=== PATIENT | female | born 1975 | race Caucasian/White ===

== ENCOUNTER 2016-10-02 11:12 | Emergency (ER) | payer MEDICAID ==
[~2016-10-02] VITALS: Ht 167.6 cm; Wt 70.0 kg
[2016-10-02 11:24] VITALS: Ht 167.6 cm; Wt 70.0 kg
[2016-10-02] MEDS ORDERED: FAMOTIDINE 20 MG INJ IV STA (12:14)
[2016-10-02] MEDS ORDERED: LIDOCAINE/MYLANTA 40 ML BTL PO STA (12:14)
[2016-10-02] MEDS ORDERED: SOD CHLORIDE 0.9% 1,000 ML IV STA (12:14)
[2016-10-02] MEDS ORDERED: morphine 4 MG/ML VIAL IV STA (12:14)
[2016-10-02] MEDS ORDERED: ONDANSETRON 4 MG INJ IV STA (12:14)
--- NOTE | 2016-10-02 12:31 | ERD ---
ER Documentation Chief Complaint Date/Time DATE: 10/02/16 TIME: 12:30 Chief Complaint Complains of epigastric/chest pain x 3 days HPI Patient is a 40-year-old female here with daughter who presents to the ED with epigastric pain 1 week. She states that the pain has gotten worse over the last week. She states that she has never had this pain in the past. She also complains of body aches. She states that she had a few episodes of diarrhea yesterday and today, nonbloody nonblack or tarry. Denies vomiting but states that she is nauseous. States that she is taking Advil for her symptoms which is helped minimally. Denies change in foods or recent travel. Denies seizures or rashes. Denies dysuria urgency. Denies fever or chills. Denies headache or dizziness, neck pain or neck stiffness. Denies chest pain or cough or shortness of breath. Denies leg pain or leg swelling. Denies heart disease. Denies family history of heart disease or MIs. ROS All systems reviewed and are negative except as per history of present illness. Medications Home Meds Active Scripts Acetaminophen* (Tylophen*) 500 Mg Capsule, 1 CAP PO Q6H Y for PAIN AND OR ELEVATED TEMP, #20 CAP Prov:BEATRIZ ENRIQUEZ PA-C 10/02/16 Ondansetron (Ondansetron Odt) 4 Mg Tab.rapdis, 4 MG PO Q6H Y for NAUSEA AND/OR VOMITING, #10 TAB Prov:BEATRIZ ENRIQUEZ PA-C 10/02/16 Famotidine* (Pepcid*) 20 Mg Tablet, 20 MG PO BID for 10 Days, TAB Prov:BEATRIZ ENRIQUEZ PA-C 10/02/16 Allergies Allergies: Coded Allergies: No Known Allergy (Verified , 05/24/14) PMhx/Soc History of Surgery: No Anesthesia Reaction: No Hx Neurological Disorder: No Hx Respiratory Disorders: No Hx Cardiac Disorders: No Hx Psychiatric Problems: No Hx Miscellaneous Medical Probl: No Hx Alcohol Use: No Hx Substance Use: No Hx Tobacco Use: No FmHx Family History: No coronary disease, No diabetes, No other Physical Exam Vitals Vital Signs Date Time Temp Pulse Resp B/P Pulse Ox O2 Delivery O2 Flow Rate FiO2 10/02/16 11:24 98.6 98 20 128/71 98 Physical Exam GENERAL: Well-developed, well-nourished female. Appears in no acute distress. HEAD: Normocephalic, atraumatic. EYES: Pupils are equally reactive bilaterally. EOMs grossly intact. No conjunctival erythema. ENT: Moist mucous membranes. No uvula deviation. No kissing tonsils. No exudates. NECK: Supple. No lymphadenopathy or thyromegaly. No meningismus. negative kernig. negative brudinski. LUNG: Clear to auscultation bilaterally. No rhonchi, wheezing, rales or coarse breath sounds. HEART: Regular rate and rhythm. No murmurs, rubs or gallops. ABDOMEN: No scars, ecchymosis or rashes noted. and nondistended. Positive bowel sounds in all four quadrants. No rebound tenderness, no guarding. (-) McBurneys point tenderness. No CVA tenderness. Tenderness in the epigastric and right upper quadrant region. BACK: No midline tenderness. Extremities: Equal pulses bilaterally. No peripheral clubbing, cyanosis or edema. No unilateral leg swelling. NEUROLOGIC: Alert and oriented. Moving all four extremities. 5/5 strength in all extremities. Normal speech. Steady gait. SKIN: Normal color. Warm and dry. No rashes or lesions. Capillary refill < 2 seconds Result Diagram: 10/02/16 1230 10/02/16 1230 Results 24 hrs Laboratory Tests Test 10/02/16 12:30 10/02/16 12:42 White Blood Count 5.610^3/ul Red Blood Count 4.2810^6/ul Hemoglobin 13.7g/dl Hematocrit 38.6% Mean Corpuscular Volume 90.2fl Mean Corpuscular Hemoglobin 32.0pg Mean Corpuscular Hemoglobin Concent 35.5g/dl Red Cell Distribution Width 11.9% Platelet Count 90355^3/UL Mean Platelet Volume 8.0fl Neutrophils % 82.7% Lymphocytes % 9.6% Monocytes % 7.0% Eosinophils % 0.0% Basophils % 0.2% Nucleated Red Blood Cells % 0.0/100WBC Neutrophils # 4.610^3/ul Lymphocytes # 0.510^3/ul Monocytes # 0.410^3/ul Eosinophils # 0.010^3/ul Basophils # 0.010^3/ul Nucleated Red Blood Cells # 0.010^3/ul Sodium Level 139mmol/L Potassium Level 3.6mmol/L Chloride Level 107mmol/L Carbon Dioxide Level 19mmol/L Anion Gap 17 Blood Urea Nitrogen 12mg/dl Creatinine 0.58mg/dl Glucose Level 105mg/dl Calcium Level 9.4mg/dl Total Bilirubin 0.7mg/dl Direct Bilirubin 0.00mg/dl Indirect Bilirubin 0.7mg/dl Aspartate Amino Transf (AST/SGOT) 24IU/L Alanine Aminotransferase (ALT/SGPT) 56IU/L Alkaline Phosphatase 87IU/L Total Protein 8.4g/dl Albumin 5.0g/dl Globulin 3.40g/dl Albumin/Globulin Ratio 1.47 Lipase 51U/L Urine Color YELLOW Urine Clarity SLIGHTLY CLOUDY Urine pH 5.0 Urine Specific Hugo 1.016 Urine Ketones NEGATIVEmg/dL Urine Nitrite NEGATIVEmg/dL Urine Bilirubin NEGATIVEmg/dL Urine Urobilinogen NEGATIVEmg/dL Urine Leukocyte Esterase TRACELeu/ul Urine Microscopic RBC 11/HPF Urine Microscopic WBC 4/HPF Urine Squamous Epithelial Cells FEW/HPF Urine Bacteria FEW/HPF Urine Hemoglobin 3+mg/dL Urine Glucose NEGATIVEmg/dL Urine Total Protein NEGATIVEmg/dl Current Medications Medications (Trade) Dose Ordered Sig/Hermilo Route PRN Reason Start Time Stop Time Status Last Admin Dose Admin Sodium Chloride (NS) 1,000 ml @ 1,000 mls/hr Q1H STAT IV 10/02/16 12:14 10/02/16 13:13 DC 10/02/16 13:12 Morphine Sulfate (morphine) 4 mg ONCE STAT IV 10/02/16 12:14 10/02/16 12:17 DC 10/02/16 13:11 Ondansetron HCl (Zofran Inj) 4 mg ONCE STAT IV 10/02/16 12:14 10/02/16 12:17 DC 10/02/16 13:11 Famotidine (Pepcid Iv) 20 mg ONCE STAT IV 10/02/16 12:14 10/02/16 12:17 DC 10/02/16 13:11 Miscellaneous Medication (Gi Cocktail (2)) 40 ml ONCE STAT PO 10/02/16 12:14 10/02/16 12:17 DC 10/02/16 13:24 Procedures/MDM ER COURSE: I kept the patient and/or family informed of laboratory and diagnostic imaging results throughout the emergency room course. EKG, MONITORS, & DIAGNOSTIC IMAGING: EKG performed, read by Dr. Ingram 94bpm, normal sinus rhythm, normal axis, no acute ST segment changes, no T wave inversion [place] [id number] Rad[facility] Main Line: [phone] DIAGNOSTIC IMAGING REPORT Patient: NILTON KHAN : 1975 Age: 40 Sex: F MR #: [id number] DOS: 10/02/16 1216 Ordering MD: BEATRIZ ENRIQUEZ PA-C Location: [facility] Room/Bed: PROCEDURE: XR Chest. CLINICAL INDICATION: Chest pain and upper abdominal pain. TECHNIQUE: Single frontal view. COMPARISON: None. FINDINGS: The lungs are clear. The heart size is normal. There is no pleural effusion. There is no pneumothorax. IMPRESSION: 1. Normal chest radiograph. RPTAT: QQ .Ac Naqvi MD, MD Date Time Electronically viewed and signed by .Ac Naqvi MD, MD on 10/02/2016 14:43 .R/ CC: BEATRIZ ENRIQUEZ PA-C [place] [id number] [facility] Main Line: [phone] DIAGNOSTIC IMAGING REPORT Patient: NILTON KHAN : 1975 Age: 40 Sex: F MR #: [id number] DOS: 10/02/16 1214 Ordering MD: BEATRIZ ENRIQUEZ PA-C Location: [facility] Room/Bed: PROCEDURE: US Abdomen . CLINICAL INDICATION: epigastric, ruq pain TECHNIQUE: Multiple real-time images were acquired of the patient's abdomen and retroperitoneum utilizing a high resolution transducer. COMPARISON: None FINDINGS: The liver measures 15.3 cm and demonstrates normal echogenicity. There is no intrahepatic biliary ductal dilatation. The extrahepatic common bile duct measures 5 mm. The main portal vein is patent with proper directional flow. The gallbladder is without stones, wall thickening, or pericholecystic fluid. The visualized pancreas is unremarkable. The right kidney measures 9.5 cm. There are no renal calculi or hydronephrosis. The visualized abdominal aorta and IVC are grossly unremarkable. IMPRESSION: Unremarkable abdominal ultrasound. No cholelithiasis or acute cholecystitis. Normal CBD. RPTAT: EE Physician Kanu Date Time Electronically viewed and signed by Physician Kanu on 10/02/2016 13:18 RA/ CC: BEATRIZ ENRIQUEZ PA-C PROCEDURES: Patient was given morphine and Zofran and GI cocktail and Pepcid. Tolerated well and stated improvement in her symptoms. LAB INTERPRETATION: CBC showed no evidence of systemic infection or severe anemia. CMP showed no evidence of electrolyte abnormalities, severe acidosis, alkalosis, renal failure , or liver disease. Lipase showed no evidence of acute pancreatitis. UA showed no evidence of leukocytes, nitrites or hematuria. Urine test was negative. MEDICAL DECISION MAKING: This is a 40-year-old female with no past medical history who presents with epigastric pain 1 week and diarrhea. Vital signs were reviewed. Patient is afebrile. Patient is not hypoxic. Patient is not toxic or ill-appearing. Patient has abdominal pain likely viral in etiology versus GERD. I reexamined patient after administration of medication and she stated improvement in symptoms and was ready to be discharged. Her ultrasound is read by radiologist was unremarkable. Her blood work was within normal limits. Her EKG and chest x -ray were within normal limits. Low suspicion for ACS, AAA, perforated ulcer, bowel obstruction, cholecystitis, choledocholithiasis, cholangitis, pancreatitis , hepatic abscess, appendicitis, diverticulitis, gastroenteritis, hepatitis, peptic ulcer disease, HELLP syndrome. Low suspicion for ACS, PE, AAA, dissection, DVT. Risk versus benefits of the CT scan were discussed with patient. No CT scan was ordered. I explained to patient to have close follow- up and to return in 8-12 hours for reevaluation. DISCHARGE: At this time, patient is stable for discharge and outpatient management with no new complaints during the ER course. Patient was sent home with Tylenol, Zofran and Pepcid and to follow-up with primary care provider or return in 8-12 hours for reevaluation. Patient will be discharged home with instructions to recheck for new or worsening symptoms such as fever, nausea, weakness, LOC and to follow up with primary care in the next 1-2 days. Patient was advised to return to the ER for any new or worsening symptoms. Plan was discussed and patient and/ or family understands and agrees. Home instructions were given. Departure Diagnosis: Primary Impression: Epigastric pain Condition: Stable BEATRIZ ENRIQUEZ PA-C Oct 02, 2016 12:31
[2016-10-02 12:41] LABS: ADD SCAN DIFF NO
[2016-10-02 12:43] LABS: ABNORMAL IP MESSAGE 1; BASOPHILS % 0.2 % (0.0-2.0); HEMATOCRIT 38.6 % (37.0-47.0); HEMOGLOBIN 13.7 g/dl (12.0-16.0); LYMPHOCYTES # 0.5 10^3/ul (0.8-2.9); LYMPHOCYTES % 9.6 % (15.0-51.0); MEAN CORPUSCULAR HGB CONC 35.5 g/dl (32.0-37.0); MEAN CORPUSCULAR VOLUME 90.2 fl (82.0-101.0); MONOCYTE # 0.4 10^3/ul (0.3-0.9); NEUTROPHIL # 4.6 10^3/ul (1.6-7.5); NEUTROPHILS % 82.7 % (39.0-77.0); PLATELET COUNT 165 10^3/UL (140-415); RED BLOOD COUNT 4.28 10^6/ul (4.20-5.40); RED CELL DISTRIBUTION WIDTH 11.9 % (11.5-14.5); WHITE BLOOD COUNT 5.6 10^3/ul (4.8-10.8)
[2016-10-02 13:03] LABS: ALBUMIN/GLOBULIN RATIO 1.47; BILIRUBIN,INDIRECT 0.7 mg/dl (0-1.1); BILIRUBIN,TOTAL 0.7 mg/dl (0.2-1.3); CALCIUM 9.4 mg/dl (8.4-10.2); CREATININE 0.58 mg/dl (0.44-1.00); POTASSIUM 3.6 mmol/L (3.5-5.1); TOTAL PROTEIN 8.4 g/dl (6.1-8.1)
[2016-10-02 13:04] LABS: ADD UMIC YES; UR ASCORBIC ACID NEGATIVE (NEGATIVE); UR BACTERIA FEW /HPF (NONE SEEN); UR BILIRUBIN (Dip) NEGATIVE (NEGATIVE); UR BLOOD (Dip) 3+ mg/dL (NEGATIVE); UR CLARITY SLIGHTLY CLOUDY (CLEAR); UR COLOR YELLOW (YELLOW); UR GLUCOSE (Dip) NEGATIVE (NEGATIVE); UR KETONES (Dip) NEGATIVE (NEGATIVE); UR LEUKOCYTE ESTERASE (Dip) TRACE Leu/ul (NEGATIVE); UR NITRITE (Dip) NEGATIVE (NEGATIVE); UR RBC 11 /HPF (0-5); UR SPECIFIC GRAVITY (Dip) 1.016 (1.003-1.030); UR SQUAMOUS EPITHELIAL CELL FEW /HPF (FEW); UR TOTAL PROTEIN (Dip) NEGATIVE (NEGATIVE); UR UROBILINOGEN (Dip) NEGATIVE (NEGATIVE)
--- NOTE | 2016-10-02 13:19 | RADRPT ---
PROCEDURE: US Abdomen . CLINICAL INDICATION: epigastric, ruq pain TECHNIQUE: Multiple real-time images were acquired of the patient's abdomen and retroperitoneum ut ilizing a high resolution transducer. COMPARISON: None FINDINGS: The liver measures 15.3 cm and demonstrates normal echogenicity. There is no intrahepatic biliary ductal dilatation. The extrahepatic common bile duct measures 5 mm. The main portal vein is patent w ith proper directional flow. The gallbladder is without stones, wall thickening, or pericholecystic fluid. The visualized pancreas is unremarkable. The right kidney measures 9.5 cm. There are no renal calculi or hydronephrosis. The visualized abdominal aorta and IVC are grossly unremarkable. IMPRESSION: Unremarkable abdominal ultrasound. No cholelithiasis or acute cholecystitis. Normal CBD. RPTAT: EE Physician Kanu Date Time Electronically viewed and signed by Physician Kanu on 10/02/2016 13:18 /
--- NOTE | 2016-10-02 14:44 | RADRPT ---
PROCEDURE: XR Chest. CLINICAL INDICATION: Chest pain and upper abdominal pain. TECHNIQUE: Single frontal view. COMPARISON: None. FINDINGS: The lungs are clear. The heart size is normal. There is no pleural effusion. There is no pneumothorax. IMPRESSION: 1. Normal chest radiograph. RPTAT: QQ .Ac Naqvi MD, MD Date Time Electronically viewed and signed by .Ac Naqvi MD, MD on 10/02/2016 14:43 .R/
[2016-10-02] MEDS ORDERED: ACET500C5 PO (14:51)
[2016-10-02] MEDS ORDERED: FAMO-18 PO (14:51)
[2016-10-02] MEDS ORDERED: ONDA4TAB14 PO (14:51)
== END 2016-10-02 15:18 | disposition home or self-care (01) ==
LOC: FTE 11:12
DX: R10.13 Epigastric pain (principal); R11.0 Nausea; R10.2 Pelvic and perineal pain
CPT/HCPCS: 71010; 76705; 80053; 81001; 83690; 85025; J2270; J2405; J7030; Z7610; 36415; 93005; 96374; 96375

== ENCOUNTER 2017-10-15 10:48 | Emergency (ER) | END 2017-10-15 11:56 | disposition home or self-care (01) ==